=== PATIENT | male | born 1960 | race Caucasian/White ===

== ENCOUNTER 2016-04-29 04:14 | Inpatient (IN) | payer MEDICARE, MEDICAID ==
[~2016-04-29] VITALS: Ht 175.3 cm; Wt 115.1 kg
[~2016-04-29 04:14] MED LIST: ALPR0.25; Bumex PO; CARV25TA; ENAL20TA93; POTA8TAB2; SIMV-8; SPIR25TA88; ZOLP10TA
[2016-04-29 04:47] LABS: Basophils # (auto) 0 uL; Basophils % (auto) 0.4 % (0.0-2.0); Eosinophils # (auto) 0.3 uL; Hematocrit 45.7 % (41.0-53.0); Hemoglobin 15.2 g/dL (13.5-17.5); Lymphocytes # (auto) 3.3 uL; Lymphocytes % (auto) 30.8 % (10.0-50.0); Mean Corpuscular Hgb Conc. 33.4 g/dL (32.0-36.0); Mean Platelet Volume 8.8 fL (7.4-10.4); Monocytes % (auto) 9.5 % (0.0-12.0); Neutrophils % (auto) 56.3 % (37.0-80.0); Platelet Count (auto) 216 10^3/uL (140-450); Red Cell Distribution Width 13.6 % (11.6-16.0); White Blood Cell 10.6 10^3/uL (4.4-10.8)
[2016-04-29 05:11] LABS: Albumin 3.9 g/dL (3.4-5.0); BUN/Creatinine Ratio 13.5; Calcium 8.4 mg/dL (8.5-10.1); Magnesium 2.1 mg/dL (1.6-2.6); Potassium 3.3 mmol/L (3.5-5.1)
[2016-04-29 05:14] LABS: Bilirubin, Total 1.2 mg/dL (0.2-1.0); Total Protein 7.5 g/dL (6.4-8.2)
[2016-04-29 05:17] LABS: B-Type Natriuretic Peptide 26.71 pg/mL (0-100)
[2016-04-29] MEDS ORDERED: POTASSIUM CHL 20 Meq TABLET PO ONE ×2 (08:00→12:30)
[2016-04-29] MEDS ORDERED: ONDANSETRON HCL 4 MG/2 ML VIAL IV ONE (10:00)
[2016-04-29] MEDS ORDERED: MORPHINE SULFATE 4 MG/ML SYRG IV ONE (10:00)
[2016-04-29] MEDS ORDERED: diphenhdrAMINE HCL 50 MG/1 ML VL IV ONE (10:15)
[2016-04-29] MEDS ORDERED: ASPirin 81 mg TAB PO ONE ×2 (11:15→12:45)
[2016-04-29] MEDS ORDERED: LACTULOSE 20Gm/30ML SOLN PO PRN (11:30)
[2016-04-29] MEDS ORDERED: MORPHINE SULF INJ 2 MG/ML SYRINGE 1ML IV PRN ×2 (11:30→12:30)
[2016-04-29] MEDS ORDERED: NITROGLYCERIN 0.4 MG SL TAB SL PRN (11:30)
[2016-04-29] MEDS: NITROGLYCERIN 0.2MG/HR TOPICAL PATCH TD SCH (11:45)
[2016-04-29] MEDS: SODIUM CHLORIDE 0.9% 1,000 ML IV SCH (11:49)
[2016-04-29] MEDS ORDERED: IOHEXOL 350 MG/ML 100ML IJ ONE (12:13)
[2016-04-29] MEDS ORDERED: PROMETHAZINE HCL 25 MG/ML 1ML IV PRN (12:30)
[2016-04-29] MEDS ORDERED: ACETAMINOPHEN 500 MG TAB PO PRN (12:30)
[2016-04-29] MEDS ORDERED: HYDROcodone-ACET 5/325MG TAB PO PRN (12:30)
[2016-04-29] MEDS ORDERED: LORazepam 0.5 MG TAB PO PRN (12:30)
[2016-04-29] MEDS ORDERED: TEMAZEPAM 15 MG CAP PO PRN (12:30)
[2016-04-29] MEDS ORDERED: ZOLPIDEM TARTRATE 5 MG TAB PO PRN (12:30)
[2016-04-29] MEDS ORDERED: CARVEDILOL 12.5 MG TAB PO ONE (12:45)
[2016-04-29] MEDS ORDERED: BUMETANIDE 1 MG TAB PO ONE (12:45)
[2016-04-29] MEDS ORDERED: SPIRONOLACTONE 25 MG TAB PO ONE (12:45)
[2016-04-29] MEDS ORDERED: ENOXAPARIN SOD 40 MG/0.4 ML SYRINGE SC ONE (12:45)
[2016-04-29 14:15] VITALS: BP 93/46
[2016-04-29 16:26] VITALS: BP 93/46
[2016-04-29] MEDS: BUMETANIDE 1 MG TAB PO SCH (18:12)
[2016-04-29] MEDS: CARVEDILOL 12.5 MG TAB PO SCH (21:55)
[2016-04-29 22:00] VITALS: BP 101/60
[2016-04-29] MEDS ORDERED: METOPROLOL TARTRATE 25 MG TAB PO SCH (22:00)
[2016-04-29] MEDS ORDERED: ATORVASTATIN 20 MG TAB PO SCH (22:00)
[2016-04-30] MEDS: SODIUM CHLORIDE 0.9% 1,000 ML IV SCH ×2 (00:48→14:08)
[2016-04-30 05:00] VITALS: BP 99/51
[2016-04-30] MEDS: BUMETANIDE 1 MG TAB PO SCH (05:46)
[2016-04-30 05:54] LABS: Basophils # (auto) 0 uL; Basophils % (auto) 0.5 % (0.0-2.0); Eosinophils # (auto) 0.3 uL; Eosinophils % (auto) 3.8 % (0.0-7.0); Hematocrit 41.9 % (41.0-53.0); Lymphocytes # (auto) 2.3 uL; Lymphocytes % (auto) 34.7 % (10.0-50.0); Mean Corpuscular Hemoglobin 30.1 pg (28.0-32.0); Mean Corpuscular Hgb Conc. 33.4 g/dL (32.0-36.0); Mean Corpuscular Volume 90.2 fL (80.0-100.0); Mean Platelet Volume 9.1 fL (7.4-10.4); Monocytes # (auto) 0.9 uL; Monocytes % (auto) 13.3 % (0.0-12.0); Neutrophils # (auto) 3.2 uL; Neutrophils % (auto) 47.7 % (37.0-80.0); Platelet Count (auto) 180 10^3/uL (140-450); Red Cell Distribution Width 13.3 % (11.6-16.0); White Blood Cell 6.8 10^3/uL (4.4-10.8)
[2016-04-30 06:35] LABS: Albumin 3.5 g/dL (3.4-5.0); BUN/Creatinine Ratio 14.9; Bilirubin, Total 1.2 mg/dL (0.2-1.0); Calcium 7.8 mg/dL (8.5-10.1); Potassium 3.8 mmol/L (3.5-5.1); Total Protein 6.5 g/dL (6.4-8.2)
[2016-04-30 08:24] VITALS: BP 132/79
[2016-04-30] MEDS: CARVEDILOL 12.5 MG TAB PO SCH (09:22)
[2016-04-30] MEDS: NITROGLYCERIN 0.2MG/HR TOPICAL PATCH TD SCH (09:24)
[2016-04-30] MEDS ORDERED: ENOXAPARIN SOD 40 MG/0.4 ML SYRINGE SC SCH (10:00)
[2016-04-30] MEDS ORDERED: SPIRONOLACTONE 25 MG TAB PO SCH (10:00)
[2016-04-30] MEDS ORDERED: ASPirin 81 mg TAB PO SCH (10:00)
[2016-04-30 15:19] VITALS: BP 107/47
== END 2016-04-30 15:15 | disposition home or self-care (01) | DRG 313 ==
LOC: ER 04:19 → TELE 04:20 → TELE-E-ADS 13:07 → TELE-WESTW 16:23
PROVIDERS: ADMIT Internal Medicine; ATTEND Internal Medicine
DX: R07.89 Other chest pain (principal); I13.0 Hypertensive heart and chronic kidney disease with heart failure and stage 1 through stage 4 chronic kidney disease, or unspecified chronic kidney disease; I42.0 Dilated cardiomyopathy; I25.119 Atherosclerotic heart disease of native coronary artery with unspecified angina pectoris; E78.5 Hyperlipidemia, unspecified; I50.9 Heart failure, unspecified; E66.01 Morbid (severe) obesity due to excess calories; I49.3 Ventricular premature depolarization; N18.9 Chronic kidney disease, unspecified; D64.9 Anemia, unspecified; E87.6 Hypokalemia; Z68.37 Body mass index [BMI] 37.0-37.9, adult; Z82.49 Family history of ischemic heart disease and other diseases of the circulatory system; I25.2 Old myocardial infarction; Z95.0 Presence of cardiac pacemaker; Z79.899 Other long term (current) drug therapy
CPT/HCPCS: 36415; 71010; 71275; 80053; 80061; 82550; 83735; 83880; 84484; 85025; 85049; 85379; 85652; 86141; 93005; 93306; 96372; 96374; 96375; J2405